=== PATIENT | female | born 1960 | race Caucasian/White ===

== ENCOUNTER → 2024-05-18 14:50 | Outpatient (REF) | payer BC, SELFPAY | LOC: HWWDC 14:50 | PROVIDERS: ATTENDING PHYSICIAN Physician Assistant | DX: Z87.891 Personal history of nicotine dependence (principal); Z12.31 Encounter for screening mammogram for malignant neoplasm of breast | CPT/HCPCS: 71250; 77063; 77067 ==

== ENCOUNTER 2024-10-20 15:08 | Inpatient (IN) | payer BC, SELFPAY ==
[2024-10-20] VITALS (12 sets, daily range): BP systolic 119–154; BP diastolic 54–113; BMI 27.1; BMI 26.1
--- NOTE | 2024-10-20 10:02 | ED.GENMED ---
History of Present Illness
General
Chief Complaint: Breathing Problem
Source: patient
Exam Limitations: none
Time Seen by Provider: 10/20/24 09:48
Nursing documentation reviewed up to this point in time: agreed with
History of Present Illness
History of Present Illness:
Patient presents to ED secondary to increased shortness of breath over the past 1 week, worse when laying down and during exertion. Denies fever or chills. Denies coughing. Denies chest pain. Denies back pain. Denies leg pain or swelling.
Denies recent change in medications or diet. Denies recent travel or surgery. Denies family history of blood clots. Of note, approximately 10 years ago, patient ports having received cardiac catheterization and she was told by her rivet tester
that she had 'silent heart attack'. Unfortunately, patient does not recall symptoms that she was experiencing at that time, which prompted the invasive procedure.
Past History
Past History
ED Past Medical History: HTN, Hypercholesterolemia, Psychiatric and Other (Colon polyps)
ED Past Surgical History: Appendectomy, Gynecological and Other (Jaw surgery)
Social History
Tobacco: Smoker
Alcohol: Occasional
Drug: None
Personal:
Living: with family
Review of Systems
Review of Systems
Allergies reviewed?: Yes
All Other Systems: ROS reviewed and negative except as documented in HPI and ROS
Constitutional: Reports no symptoms
EENT: Reports no symptoms
Respiratory: Reports trouble breathing
Cardiac: Reports no symptoms; Denies chest pain or palpitations
ABD/GI: Reports no symptoms
: Reports no symptoms
Musculoskeletal: Reports no symptoms
Skin: Reports no symptoms
Neurological: Reports no symptoms
Phy Exam
Physical Exam
Physical Exam:
Physical Exam
General: mild respiratory distress, not acutely ill. afebrile
Head: nc/at. eomi
Neck: supple. no meningeal signs.
Heart: tachycardic, no murmur. equal radial pulses.
Lungs: mild respiratory distress. diminished breath sounds bilaterally
Abdomen: normal bowel sounds. not tender.
Neuro: alert and oriented. no focal neurological deficits
Skin: no rash
Psychiatric: well kept. interactive and cooperative
Extremities: no edema. no calf tenderness.
Scores
Heart Failure Risk
Heart Failure Risk Score: Yes
History of Stroke or TIA: No
History of intubation for respiratory distress: No
Heart rate on ED arrival >/= 110: No
SaO2 <90% on arrival on room air: Yes
HR >/=110 during 3min walk test (or too ill to perform test): No
ECG has acute ischemic changes: No
Urea >/=12mmol/L (BUN 33.6mg/dL): No
Serum CO2>/=35mmol/L: No
Troponin I or T elevated to MS Level (0.4mg/dL): No
NT-proBNP >/=5,000ng/L (5,000pg/ml): No
HF Risk Score: 1
Admission Status: MEDIUM RISK 5.1% Consider observation or discharge to home with homecare & f/u visit to PCP/[facility], or SNF for treatment
Course
Orders/Labs/Results
Orders:
Orders
10/20/24 09:15
Electrocardiogram (*1) Urgent
Reason for Study: Chest Pain
EKG- Treatment ONCE
10/20/24 09:57
Basic Metabolic Panel Urgent
Complete Blood Count/With Diff Urgent
NT-proBNP Urgent
Comment: ADD
Troponin I Urgent
10/20/24 10:01
Add On- LAB Urgent
Tests Added?: ProBNP, magnesium
10/20/24 10:02
CR Chest - 2 Views Urgent
Comment:
Reason For Exam: sob
10/20/24 10:05
D-Dimer Urgent
10/20/24 10:46
Magnesium Urgent
Comment: ADDON
Potassium Urgent
10/20/24 11:06
CT Chest PE Study Urgent
Comment:
Reason For Exam: sob with elevated d-dimer
10/20/24 11:07
Electrocardiogram (*1) Urgent
Reason for Study: Shortness of Breath
EKG- Treatment ONCE
10/20/24 13:04
Furosemide [Lasix] 20 mg IV NOW STA
10/20/24 14:42
Admit/Transfer Patient As Directed
Co-Sign Provider:
Level of Care: Inpatient admission
Assign to:: Telemetry
Physician / Group: [email or web address]
Diagnosis: Dyspnea, Hypoxia , New onset acute HF tupe unknown
Reason for Telemetry: Acute Heart Failure
Date to Stop Telemetry: 10/23/24
Time to Stop Telemetry: 11:00
Reason for Hospitalization: Dyspnea, Hypoxia , New onset acute HF tupe unknown
Expected length of stay greater than two midnights?: Yes
ELOS- Estimated Length of Stay in days: 3
I certify the patient meets the requirements for IP care: Yes
10/20/24 14:45
Code Status As Directed
Resuscitation Status: Full Code
10/20/24 Dinner
Cholesterol Lowering
At Your Request: Full Participation
Fluid Restriction: 1500 mL/day (50 oz)
Cholesterol Lowering: Sodium, 2 Gram
10/20/24 15:25
Lorazepam [Ativan] 0.5 mg PO BIDPRN PRN
10/20/24 15:25
HF DIETARY CONSULT Routine
HF EDUCATOR CONSULT Routine
Comment:
Activity As Directed
Activity Level: With Assistance
Intake/ Output As Directed
Frequency: Per unit guidelines
Patient Education As Directed
Type: CHF folder
Comment: give on admission. Document in Interdisciplinary Education record
Sleep Apnea Assessment by RN As Directed
Comment:
Physician Instructions:
Vital Signs As Directed
Frequency: Other
Additional Instructions:: Q12 or per unit guidelines if more frequent.
Weight As Directed
Frequency: Daily
Type of Scale: Standing Scale
Comment: Daily morning weight. If unable to stand, use balanced bed scale.
Weight As Directed
Frequency: Once
Type of Scale: Standing Scale
Comment: Upon Admission. If unable to stand, use balanced bed scale.
Pulse Ox/cont/shift [RESP] Routine
Quantity: 1
Special Instructions: Daily pulse oximetry at rest. If greater than 92% at rest also obtain pulse oximetry
while ambulating as tolerated.
Ot Eval And Treat Routine
Pt Eval And Treat Routine
Activity Level: With Assistance
DX Deep Vein Thrombosis Video Routine
10/20/24 16:00
Furosemide [Lasix] 20 mg IV BID AT 0800,1600
10/20/24 18:00
Enoxaparin Sodium [Lovenox] 40 mg SC QPM
10/20/24 22:00
Atorvastatin [Lipitor] 20 mg PO HS
10/21/24 05:55
Basic Metabolic Panel IN AM
Cardiovascular Evaluation IN AM
Magnesium IN AM
Troponin I Q6H
Comment: at admission & every 6 hours x 2 (3 total), ECG to be done with each level
10/21/24 06:00
Echo 2D MMode Color/Doppler IN AM
Reason for Study: heart failure
10/21/24 08:00
Aspirin Low Dose EC [Aspir Low (Enteric Coated)] 81 mg PO DAILY
10/22/24 06:00
Basic Metabolic Panel IN AM
10/23/24 06:00
Basic Metabolic Panel IN AM
10/23/24 11:00
DC Protocol for Telemetry ONCE
Abnormal Lab Results
10/20/24 10/20/24
09:57 10:05
MCHC 32.4 L g/dL
(33.0-37.0)
Absolute Monos (auto) 0.8 H 10^3/uL
(0.1-0.6)
Monocytes % 9.6 H %
(1.7-9.3)
D-Dimer 1.34 H ug/mlFEU
(0.00-0.50)
Sodium 134 L mmol/L
(135-145)
Carbon Dioxide 21 L mmol/L
(22-30)
Glucose 100 H mg/dl
(70-99)
10/20/24 09:57
10/20/24 10:46
Vital Signs
Initial and Last Documented VS:
Initial Vital Signs
Temp Pulse Resp BP Pulse Ox
98.2 F 109 16 154/100 98
10/20/24 09:24 10/20/24 09:24 10/20/24 09:24 10/20/24 09:24 10/20/24 09:24
Last Documented Vital Signs
Temp Pulse Resp BP Pulse Ox
97.9 F 84 18 119/67 100
10/21/24 15:36 10/21/24 15:36 10/21/24 15:36 10/21/24 15:36 10/21/24 15:36
MDM/Problems Addressed
MDM/Problems Addressed:
CT angiogram chest ordered to evaluate for potential pulmonary embolism, secondary to patient's presenting hypoxia, tachycardia, along with elevated D-dimer.
History and exam consistent with likely new onset congestive heart failure, as noted on chest x-ray along with elevated proBNP and patient's presenting symptoms. Patient will be admitted for IV diuresis and continual administration of supplemental
oxygen.
*EKG
EKG Intrepretation Date: 10/20/24
Heart Rate: 110
Rate: tachycardiac
Rhythm: sinus
[place]: normal axis
Ischemia: T-wave inversion
*Critical Care Note
Total Time (30-74mins, 75-104mins- exclusive of procedures): Not Applicable
ED Attending Note
-
Portions of this chart may have been created with voice recognition software.� Occasional wrong word or��sound alike� substitutions may have occurred due to the inherent limitations of voice recognition software.
Discharge Plan
Departure
Patient Disposition: Admit
Date of Disposition: 10/20/24
Time of Disposition: 13:21
Admit to: Telemetry
Presentation/result/management discussed w/ accepting MD/DO: Hospitalist
Discharge Problem:
Hypoxia, Fluid overload, Exertional dyspnea
Interventions
Interventions:
*General Assessment Last Done: 10/20/24 09:42
*Neglect/Abuse Screening Last Done: 10/20/24 09:24
ED- Fall Risk Assessment Last Done: 10/20/24 09:42
*Nursing Disposition Last Done: 10/20/24 16:53
ED- Cardiac Assessment Last Done: 10/20/24 09:42
ED- Pulmonary Assessment Last Done: 10/20/24 09:42
Discharge Date and Time
Discharge Date/Time: 10/20/24 16:53
[2024-10-20 10:13] LABS: % Basophils 0.9 % (0-2); % Eosinophils 2.3 % (0-6); % Immature Granulocytes 0.3 % (0-0.5); % Lymphocytes 23.9 % (20.5-51.1); % Monocytes 9.6 % (1.7-9.3); Absolute Basophils 0.1 10^3/uL (0-0.2); Absolute Eosinophils 0.2 10^3/uL (0-0.7); Absolute Lymphocytes 1.9 10^3/uL (1.2-3.4); Absolute Monocytes 0.8 10^3/uL (0.1-0.6); Absolute Neutrophils 4.9 10^3/uL (1.4-6.5); Hematocrit 38.9 % (37.0-47.0); Hemoglobin 12.6 g/dL (12.0-16.0); Mean Corp Hgb Conc. 32.4 g/dL (33.0-37.0); Mean Corpuscular Hgb 27.9 pg (27.0-31.0); Mean Corpuscular Volume 86.3 fL (81.0-99.0); Mean Platelet Volume 9.7 fL (7.4-10.4); Nucleated Red Blood Cells % 0 %; Platelet Count 267 10^3/uL (130-400); Red Blood Cell Count 4.51 10^6/uL (4.20-5.40); Red Cell Dist. Width 13.9 % (11.5-14.5); White Blood Cell Count 7.8 10^3/uL (4.8-10.8)
[2024-10-20 10:24] LABS: D-Dimer 1.34 ug/mlFEU (0.00-0.50)
[2024-10-20 10:37] LABS: Troponin I 0.022 ng/ml
[2024-10-20 10:41] LABS: Blood Urea Nitrogen 13 mg/dl (7-17); Calcium 8.8 mg/dl (8.4-10.2); Carbon Dioxide 21 mmol/L (22-30); Chloride 106 mmol/L (98-107); Estimated Creatinine Clearance 92 ml/min; Glucose 100 mg/dl (70-99); Sodium 134 mmol/L (135-145); eGFR > 60.00
[2024-10-20 11:28] LABS: Potassium 4.6 mmol/L (3.5-5.1)
[2024-10-20 13:15] LABS: NT-proBNP 2360 pg/ml
[2024-10-20] MEDS: LASIX 20 MG IV ×2 (13:18→18:14)
--- NOTE | 2024-10-20 14:36 | HPS.HSE ---
Family Physician
-
Family Physician: Lady Hicks, PAC
Chief Complaint
-
SoB with exertion
History of Present Illness
HPI
61F HX hypertension, hypercholesterolemia, depression, colon polyps, hemorrhagic colitis seen at ER:
- FERGUSON with hypoxia (88% on RA) at ER
- increased shortness of breath over the past 1 week, worse when laying down and during exertion.
At ER :
Of note; 10 years ago, patient reports she had cardiac catheterization and she was told by her marketing graphics specialist that she had 'silent heart attack'. Unfortunately, patient does not recall symptoms that she was experiencing at that time, which prompted
the invasive procedure.
ROS
Denies fever or chills.
Denies coughing.
Denies chest pain.
Denies leg pain or swelling.
Denies recent travel or surgery.
.
Medical History
Past Medical History
Past Medical History: Reports HTN, Hypercholesterolemia, Psychiatric (depression ) and Other (colon polyps )
Past Surgical History: Reports Other
Social History
Unable to obtain full social history at this time due to: Other
Family History
Family History: Not pertinent
Allergies / Home Medications
Allergies reflects when Allergies were last updated in [facility].
Home Medications with original date entered in [facility]
Allergy/Medication List:
Allergies
Allergy/AdvReac Type Severity Reaction Status Date / Time
Penicillins Allergy Rash Verified 10/20/24 09:26
Home Medications
aspirin 81 mg tablet,delayed release 81 mg PO DAILY 10/20/24
atorvastatin 20 mg tablet (Lipitor) 20 mg PO HS 10/20/24
cholecalciferol (vitamin D3) 25 mcg (1,000 unit) tablet (Vitamin D3) 25 mcg PO DAILY 10/20/24
lorazepam 0.5 mg tablet 0.5 mg PO BIDPRN PRN anxiety 10/20/24
Review of Systems
-
Constitutional: Reports No Symptoms
EENT: Reports No Symptoms
Respiratory: Reports See HPI and Trouble Breathing
Cardiac: Reports No Symptoms
Abdomen/GI: Reports No Symptoms
: Reports No Symptoms
Musculoskeletal: Reports No Symptoms
Skin: Reports No Symptoms
Neurological: Reports No Symptoms
Endocrine: Reports No Symptoms
Hematologic/Lymphatic: Reports No Symptoms
Psych: Reports No Symptoms
Physical Exam
Vital Signs
Vital Signs
Temp Pulse Resp BP Pulse Ox
98.2 F 92 16 141/92 93
10/20/24 09:24 10/20/24 13:30 10/20/24 09:24 10/20/24 13:18 10/20/24 13:46
Physical Exam
General: Well Developed, Well Nourished and No Apparent Distress
HEENT: NormoCephalic, Moist mucous membranes and Atraumatic
Respiratory: Clear
Cardiac: S1/S2 and Regular Rhythm; No Murmur or Rub
GI: Soft, Non Tender, Non Distended and Normal Bowel Sounds; No Organomegaly
Rectal: Deferred by Provider
Musculoskeletal: No Clubbing, No Cyanosis and No Edema
Skin: No Rash
Neuro: Nonfocal/grossly intact
Laboratory Results
-
10/20/24 09:57
10/20/24 10:46
Laboratory Results
Total Bilirubin Cancelled 10/20/24 09:57
AST Cancelled 10/20/24 09:57
ALT Cancelled 10/20/24 09:57
Alkaline Phosphatase Cancelled 10/20/24 09:57
Troponin I 0.022 ng/ml 10/20/24 09:57
Data Reviewed
-
Diagnostic Radiology: Report Reviewed by me
CT Scan: Report Reviewed by me
Medical Tests (Nuc Med, Echo, EKG etc): Report Reviewed by me
Lab Data: Labs Reviewed by me
Impression/Plan
-
Reviewed VS: unremarkable
Data
nl CBC
DD 1.34 - NEG CTC for PE
Na 134
nl Cr
TPNI 0.022
pro BNP 2360
EKG
NORMAL SINUS RHYTHM
RIGHT AXIS DEVIATION
NONSPECIFIC T WAVE ABNORMALITY
ABNORMAL ECG
WHEN COMPARED WITH ECG OF 20-OCT-2024 09:20,
QRS AXIS SHIFTED RIGHT
10/20/24 CXR
Suspect mild pulmonary interstitial edema.
10/20/24 CT Chest PE Study
1. No evidence of pulmonary embolism.
2. Moderate right and small left pleural effusions.
Last hospitalist admission: DATE OF ADMISSION: 01/09/2022 - DATE OF DISCHARGE: 01/12/2022
DISCHARGE DIAGNOSIS: Hemorrhagic colitis, possibly infectious.
ASSESSMENT & PLAN
Acute Ferguson with exertional hypoxia; afebrile and nl WCC
Likely new onset acute HF ( elevated proBNP, mild pulmonary interstitial edema) s/p Lasix 20mg at ER
- IV Lasix 2mg BID
- f/u Dyspnea, POx and daily wt
- daily BMP
- ECHO
- [facility] card consult
Benign HTN; normotensive
- Previously on Coreg, no longer on current list
- Observe BP
HLD
- c/w Atorvastatin
Depression
- stable on Lexapro continued
Current smoker
- smoking cessation
HX hemorrhagic colitis
- inactive problem
DVT Px: LMWH
Full
IP TLM
[2024-10-20] MEDS: TYLENOL 650 MG PO ×2 (15:34→23:08)
[2024-10-20] MEDS: ATIVAN 0.5 MG PO (18:13)
[2024-10-20] MEDS: LOVENOX 40 MG SC (18:13)
[2024-10-20 18:15] LABS: Troponin I 0.022 ng/ml
--- NOTE | 2024-10-20 18:30 | PTCARENOTE ---
1730 Pt arrived from ER via stretcher, alert and oriented x 3. Pt on O2 2L via n/c (pulse ox 97%). Pt mention felt short of breath when moving.
Noted MD orders, place on heart monitor (normal sinus rhythm (heart rate 80's to 90's). 1800 Lasix 20 mg IV given as ordered, also pt requested if can have a med to calm or to sleep. Explain Ativan 0.5 mg po ordered and given at this time, continue
to monitor pt closely.
[2024-10-20] MEDS: LIPITOR 20 MG PO (21:17)
[2024-10-21] VITALS (10 sets, daily range): BP systolic 94–153; BP diastolic 67–91; PULSE 77; O2SAT 94–95; BMI 25.8
[2024-10-21 00:38] LABS: Troponin I 0.025 ng/ml
[2024-10-21 06:42] LABS: Blood Urea Nitrogen 17 mg/dl (7-17); Carbon Dioxide 26 mmol/L (22-30); Chloride 102 mmol/L (98-107); Estimated Creatinine Clearance 82 ml/min; Glucose 101 mg/dl (70-99); HDL Cholesterol 60 mg/dl; LDL Cholesterol, Calculated 152 mg/dl; Magnesium 2.2 mg/dl (1.6-2.3); Potassium 4.2 mmol/L (3.5-5.1); Sodium 137 mmol/L (135-145); Total Cholesterol 238 mg/dl (50-199); Triglyceride 134 mg/dl (10-149); Very Low Density Lipoprotein 26 mg/dl (0-30); eGFR > 60.00
[2024-10-21 06:50] LABS: Troponin I 0.022 ng/ml
[2024-10-21] MEDS: ASPIR LOW (ENTERIC COATED) 81 MG PO (08:15)
[2024-10-21] MEDS: LASIX 20 MG IV ×2 (09:29→16:55)
--- NOTE | 2024-10-21 10:42 | CON.CAR ---
Addendum entered and electronically signed by Sarina Aguilar PA-C 10/21/24 11:30:
Records from Dr. Lira obtained and reviewed including last office visit and EKG 08/24/24, labs 02/26/24, cardiac cath 09/28/2014. She has history of carotid disease, resolved cardiomyopathy with most recent echocardiogram 07/2022 with EF 60 to
65%, trace MR, trace TR. She had diffuse nonobstructive CAD by cath 09/2014. At office visit 08/24/2024 it was noted that it had been 2 years since her last office visit she was continuing to smoke and she had discontinued all of her medications on
her own including carvedilol, ramipril, Lipitor. Compliance will need to be encouraged
Addendum entered and electronically signed by Osito Robbins MD 10/21/24 11:06:
I saw and examined the patient.
The SOCIAL SERVICE COORDINATOR or PA's note was reviewed and I agree with the note.
Comment: General: Well developed, well nourished in NAD.
Neck: Supple, no JVD, HJR, carotids +2 B/L, no bruits bilaterally.
Heart: Non displaced PMI, RRR, no murmurs, No S3, S4, no rubs.
Lungs: Scattered rhonchi and decreased breath sounds at right base
Extremities: No clubbing, cyanosis or edema bilaterally.
Neuro: Grossly nonfocal, awake, alert and oriented x3.
Floresita has a history of cardiomyopathy with silent heart attack and hyperlipidemia followed at [facility]. She presents with short breath for the past 48 hours as well as orthopnea. Cardiology is consulted for CHF with elevated proBNP of 2360 and
moderate right pleural effusion and small left pleural effusion
Will diurese with IV Lasix. Will check echocardiogram. IR has been consulted for thoracentesis. Try to get records from [facility].
Original Note:
Consultation
Consultation Request
Date/Time Consultation Performed: 10/21/24
Requesting Provider: Dr. Lopez
Performing Provider: Sarina Aguilar PA-C for Dr. Robbins
Reason for Consultation: CHF
Medical History
-
Chief Complaint: SOB
History of Present Illness:
Patient is a 63 yo F with PMH of 'silent heart attack' as well as cardiomyopathy followed by Dr. Lira of [facility] cardiology who reports worsening SOB over the last 48 hours. She reports significant orthopnea. Denies LE edema or weight gain. Is not
chronically on diuretic as OP. ProBNP 2360. CXR with mod R pleural effusion and small L pleural effusion. Cardiology consulted for evaluation of CHF.
PMH:
Cardiomyopathy
History of 'silent' heart attack
HLD
Anxiety
History of hemorrhagic colitis
Past Medical History
Past Medical History: Other (in HPI)
Social History
Tobacco: Former Smoker
Alcohol: Occasional
Personal:
Living: With Family
Family History
Family History: CAD
Allergies / Home Medications
Allergy/AdvReac Type Severity Reaction Status Date / Time
Penicillins Allergy Rash Verified 10/20/24 09:26
�Medication �Instructions �Recorded �Confirmed �Type
aspirin 81 mg tablet,delayed 81 mg PO DAILY Blood Clot 10/20/24 10/20/24 History
release Prevention/Tx
atorvastatin 20 mg tablet (Lipitor) 20 mg PO HS High Cholesterol 10/20/24 10/20/24 History
cholecalciferol (vitamin D3) 25 25 mcg PO DAILY Supplement 10/20/24 10/20/24 History
mcg (1,000 unit) tablet (Vitamin
D3)
lorazepam 0.5 mg tablet 0.5 mg PO BIDPRN PRN anxiety 10/20/24 10/20/24 History
Review of Systems
-
History Source: Patient
All other systems: Negative unless noted
Physical Exam
Vital Signs
Temp Pulse Resp BP Pulse Ox
97.6 F 78 18 129/80 94
10/21/24 07:47 10/21/24 09:29 10/21/24 07:47 10/21/24 09:29 10/21/24 07:47
Lab Results
10/20/24 09:57
10/21/24 05:55
Troponin I 0.022 ng/ml 10/21/24 05:55
Mxh-H-Pcnlqtuxifc Pept 2360 pg/ml 10/20/24 09:57
Physical Exam
General: No Apparent Distress
HEENT: Normocephalic, Anicteric and Moist Mucous Membranes
Respiratory: Other (decreased BS RLB)
Cardiac: S1/S2 and Regular Rhythm; Negative Murmur
GI: Soft, Non Tender, Non Distended and Normal Bowel Sounds
Musculoskeletal: No Clubbing, No Cyanosis and No Edema
Skin: Warm and Dry
Neuro: AO x 3
Impression / Plan
-
Primary Instructional Coach: Dr. Lira of [facility]
Assessment:
Presentation with SOB
Mod R and small L pleural effusions
Acute CHF, suspected systolic
Cardiomyopathy
History of 'silent' heart attack by prior cardiac catheterization
HLD
Anxiety
History of hemorrhagic colitis
Former smoker
ECHO 10/21/24: pending
Plan:
-Patient presented for evaluation of shortness of breath
-Chest CT negative for PE, however with moderate right and small left pleural effusions. proBNP elevated. Cardiology consulted for evaluation of acute CHF.
-Patient reports history of cardiomyopathy as well as 'silent' heart attack. Requested records from primary operations manager/coordinator
-[facility] has been consulted to evaluate for right thoracentesis. would analyze fluid
-Continue IV Lasix 20mg BID. Cr stable
-CHF education
-Check echo
-Continue aspirin
-increase statin to 40mg QPM given suboptimal cholesterol levels and history of CAD
-review of tele SR with 1 5-beat run of NSVT overnight. K/mag stable.
-will add toprol 25mg daily
Data Reviewed
-
EKG: Tracing Personally Visualized and interpreted
CT Scan: Report Reviewed by me
Medical Tests (Nuc Med, Echo etc): Report Reviewed by me
Labs: Labs Reviewed by me
Old Records: Requested and Reviewed
[2024-10-21] MEDS: TYLENOL 650 MG PO (12:43)
--- NOTE | 2024-10-21 14:11 | W.PN.HOSP.TC ---
Today's Communication/Plan
-
Hour after thoracentesis
Continue with IV Lasix
asa/statin
Assessment / Plan
Assessment / Plan
#Shortness of breath likely multifactorial due to acute systolic and diastolic heart failure exacerbation and pleural effusion
#Acute systolic and diastolic heart failure exacerbation EF 20%
#History of cardiomyopathy
[facility] consulted for thoracentesis
CT chest noted negative for pulmonary embolism.
Start patient on goal-directed medical therapy
Echocardiogram with EF of 20 to 25%. Global hypokinesis. Stage I diastolic dysfunction. No prior echo to compare in the system.
Start patient on 20 mg of IV Lasix
Strict I's and O's
Daily weights
Continue with aspirin, and statin
Compliance with the medication needs to be strictly enforced with the patient if she desires to improve
#Hyperlipidemia
Cholesterol elevated
Increase dose of statin
#Anxiety
Continue with Ativan home dose
History of hemorrhagic cystitis
Tobacco abuse
Counseled on cessation. DuoNeb as needed.
DVT prophylaxis Lovenox
Full code
Anticipated Discharge: > 48 hours
Subjective/Interval History
-
Date of Service: October 21, 2024
states of sob with exertion
Objective Data
-
Labs:
Laboratory Results
10/21/24
05:55
Sodium 137
Potassium 4.2
Chloride 102
Carbon Dioxide 26
BUN 17
Creatinine 0.6
Glucose 101 H
Calcium 9.0
Vital Signs:
Vital Signs
Temp Pulse Resp BP Pulse Ox
97.9 F 95 16 103/75 92
10/21/24 13:01 10/21/24 13:51 10/21/24 13:51 10/21/24 13:51 10/21/24 13:01
I&O
10/20/24 10/21/24 10/22/24
06:59 06:59 06:59
Intake Total 720 / 720
Output Total 700 / 700
Balance
Physical Exam
-
General: Well Developed and No Apparent Distress
HEENT: Normocephalic, Atraumatic and Moist Mucous Membranes
Respiratory: Wheezes and Rhonchi
Cardiac: Regular Rhythm and S1/S2; Negative Murmur, Rub or Gallop
GI: Soft, Nontender, Nondistended and Normal Bowel Sounds; Negative Organomegaly
Rectal: Deferred by Provider
Musculoskeletal: No Clubbing, No Cyanosis and No Edema
Skin: Negative Rash
Neuro: Awake, Alert, Oriented, AO x 3, No Motor Deficits and Nonfocal/Grossly Intact
Psych: Calm
Data Reviewed
-
Total Time Spent with Patient (in minutes): 55
--- NOTE | 2024-10-21 14:31 | CM ---
software design manager reviewed patient's chart and met with patient and patient lives with spouse in a split level home patient is independent with adl's and ambulation, no dme, patient drives, home when stable no needs.
PCP: Lady Hicks
Pharmacy: [facility]
Plan; Home no needs when stable.
[2024-10-21 14:35] LABS: Body Fluid Mononuclear 86.4 %; Body Fluid Polymorphonuclear 13.6 %; Body Fluid WBC 843 /CUMM
[2024-10-21 14:40] LABS: Body Fluid pH 7.53
[2024-10-21 14:44] LABS: Body Fluid Second Tech EF
[2024-10-21 16:20] LABS: Body Fluid Amylase < 30 U/L; Body Fluid Glucose 105 mg/dl; Body Fluid LDH 135 U/L
[2024-10-21] MEDS: LOVENOX 40 MG SC (17:17)
[2024-10-21 18:44] LABS: LDH 278 U/L (120-246); Total Protein 6.2 g/dl (6.3-8.2)
[2024-10-21] MEDS: ATIVAN 0.5 MG PO (20:20)
[2024-10-21] MEDS: LIPITOR 40 MG PO (21:18)
[2024-10-21] MEDS: MELATONIN 5 MG PO (21:50)
[2024-10-22 03:27] VITALS: BP 114/66
[2024-10-22 05:53] VITALS: BMI 25.8
[2024-10-22 07:44] VITALS: BP 147/84
[2024-10-22] MEDS: ASPIR LOW (ENTERIC COATED) 81 MG PO (08:46)
[2024-10-22 09:01] LABS: Blood Urea Nitrogen 24 mg/dl (7-17); Calcium 9.1 mg/dl (8.4-10.2); Carbon Dioxide 29 mmol/L (22-30); Chloride 100 mmol/L (98-107); Estimated Creatinine Clearance 70 ml/min; Glucose 109 mg/dl (70-99); Potassium 4.2 mmol/L (3.5-5.1); Sodium 137 mmol/L (135-145); eGFR > 60.00
[2024-10-22] MEDS: DUONEB 3 ML INH ×3 (09:33→21:03)
[2024-10-22] MEDS: LASIX 20 MG IV ×2 (10:12→17:52)
--- NOTE | 2024-10-22 10:34 | W.PN.CARDCBS ---
Addendum entered and electronically signed by Ostio Robbins MD 10/22/24 13:07:
I saw and examined the patient.
The MASCARA MOLDER or PA's note was reviewed and I agree with the note.
Comment: General: Well developed, well nourished in NAD.
Neck: Supple, no JVD, HJR, carotids +2 B/L, no bruits bilaterally.
Heart: Non displaced PMI, RRR, no murmurs, No S3, S4, no rubs.
Lungs: Scattered rhonchi
Extremities: No clubbing, cyanosis or edema bilaterally.
Neuro: Grossly nonfocal, awake, alert and oriented x3.
Ejection fraction severely reduced. Continue Coreg. Consider Entresto if cost is reasonable. Consider Farxiga versus Jardiance. Cardiac catheterization on 10/24/2024 to exclude CAD as the cause of cardiomyopathy. Continue IV Lasix. Discussed
with patient and at bedside
Original Note:
Today's Communication / Plan
-
Continue IV Lasix
Status post right thoracentesis
GDMT of cardiomyopathy
N.p.o. for cardiac catheterization Thursday
Impression / Plan
-
Primary Director Dietetics Department: Dr. Lira of [facility]
Assessment:
Presentation with SOB
Mod R and small L pleural effusions
Acute HFrEF
Status post right thoracentesis for 650 cc 10/21/2024
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
History of 'silent' heart attack by prior cardiac catheterization 2013, diffuse nonobstructive disease
HLD
Anxiety
History of hemorrhagic colitis
Former smoker
ECHO 10/21/24: EF 20 to 25%, global hypokinesis, stage I diastolic dysfunction
Plan:
-Patient presented with shortness of breath and being treated for acute heart failure
-She has history of a recovered cardiomyopathy. As of last office visit it was noted that she had stopped all of her medications including carvedilol, ramipril, Lipitor. She states she is unsure why she did that
-Continue IV Lasix. Reports breathing improving. Creatinine stable
-Status post right thoracentesis for 650 cc 10/21/2024
-CHF education
-Echo results reviewed with patient today, as above, EF 20 to 25%.
-Will add back GDMT as able. Ordered Coreg 3.125 mg twice daily. Case management consult to assess cost of Entresto and Farxiga. She had been on Coreg and ramipril in the past. Discussed importance of compliance moving forward
-Last cath with diffuse nonobstructive disease in 2013. Would plan for cardiac catheterization on Thursday to reevaluate coronaries in setting of recurrent cardiomyopathy
-continue asa, statin
-review of tele SR with 1 4-beat run of NSVT overnight. K/mag stable.
-smoking cessation
Progress Note - Director Dietetics Department
Subjective
Date of Service: October 22, 2024
Reports breathing improved
Objective
Labs:
10/20/24 09:57
10/22/24 08:00
Labs
Hgb 12.6 g/dL (12.0-16.0) 10/20/24 09:57
Hct 38.9 % (37.0-47.0) 10/20/24 09:57
Plt Count 267 10^3/uL (130-400) 10/20/24 09:57
Sodium 137 mmol/L (135-145) 10/22/24 08:00
Potassium 4.2 mmol/L (3.5-5.1) 10/22/24 08:00
BUN 24 mg/dl (7-17) H 10/22/24 08:00
Creatinine 0.7 mg/dL (0.6-1.0) 10/22/24 08:00
Glucose 109 mg/dl (70-99) H 10/22/24 08:00
Troponins
10/20/24 10/20/24 10/20/24
09:57 15:25 17:44
Troponin I 0.022 Cancelled 0.022
10/20/24 10/21/24 10/21/24
21:25 00:09 05:55
Troponin I Cancelled 0.025 0.022
Vital Signs and I&O:
Vital Signs
Temp Pulse Resp BP Pulse Ox
98.4 F 91 16 147/84 99
10/22/24 07:44 10/22/24 09:38 10/22/24 09:38 10/22/24 07:44 10/22/24 09:38
Vital Signs
Temp Pulse Resp BP Pulse Ox
98.4 F 91 16 147/84 99
10/22/24 07:44 10/22/24 09:38 10/22/24 09:38 10/22/24 07:44 10/22/24 09:38
Intake & Output
10/20/24 10/21/24 10/22/24 10/23/24
07:59 07:59 07:59 07:59
Intake Total 720 / 720 960 / 960
Output Total 700 / 700
Balance 20 / 20 960 / 960
Physical Exam
Physical Exam
GEN: No distress, awake, alert, oriented x3
HEENT: supple, anicteric, mmm, EOMI
LUNGS: CTA bilaterally, no wheezes/rales
CV: Reg, S1/S2, no murmur
ABD: soft, BS+, NT/ND
EXT: No cyanosis, clubbing, edema
NEURO: Gross non-focal
SKIN: Warm, pink, dry. No rash
[2024-10-22 11:18] VITALS: BP 113/67
[2024-10-22] MEDS: MIRALAX PO (12:47)
--- NOTE | 2024-10-22 13:00 | W.PN.HOSP.TC ---
Today's Communication/Plan
-
GDMT
IV lasix
nicotine patch
bowel regimen
Assessment / Plan
Assessment / Plan
#Shortness of breath likely multifactorial due to acute systolic and diastolic heart failure exacerbation and pleural effusion
#Acute systolic and diastolic heart failure exacerbation EF 20%
#History of cardiomyopathy
iRad consulted for thoracentesis status post 650 cc of clear kandice pleural fluid removed.
CT chest noted negative for pulmonary embolism.
Start patient on goal-directed medical therapy
Echocardiogram with EF of 20 to 25%. Global hypokinesis. Stage I diastolic dysfunction. No prior echo to compare in the system.
Start patient on 20 mg of IV Lasix BID
Strict I's and O's
Daily weights
Continue with aspirin, and statin and Coreg
Compliance with the medication needs to be strictly enforced with the patient if she desires to improve
Plan for cardiac cath on Thursday
#Hyperlipidemia
Cholesterol elevated
Increase dose of statin
#Anxiety
Continue with Ativan home dose
Tobacco abuse
Counseled on cessation. DuoNeb as needed and standing.
nicotine patch ordered.
Constipation
started bowel regimen
History of hemorrhagic cystitis
DVT prophylaxis Lovenox
Full code
Anticipated Discharge: > 48 hours
Subjective/Interval History
-
Date of Service: October 22, 2024
states of sob with exertion
Objective Data
-
Labs:
Laboratory Results
10/22/24
08:00
Sodium 137
Potassium 4.2
Chloride 100
Carbon Dioxide 29
BUN 24 H
Creatinine 0.7
Glucose 109 H
Calcium 9.1
Vital Signs:
Vital Signs
Temp Pulse Resp BP Pulse Ox
98.0 F 96 18 113/67 97
10/22/24 11:18 10/22/24 11:18 10/22/24 11:18 10/22/24 11:18 10/22/24 11:18
I&O
10/21/24 10/22/24 10/23/24
06:59 06:59 06:59
Intake Total 720 / 720 960 / 960
Output Total 700 / 700
Balance 960 / 960
Physical Exam
-
General: Well Developed and No Apparent Distress
HEENT: Normocephalic, Atraumatic and Moist Mucous Membranes
Respiratory: Wheezes and Rhonchi
Cardiac: Regular Rhythm and S1/S2; Negative Murmur, Rub or Gallop
GI: Soft, Nontender, Nondistended and Normal Bowel Sounds; Negative Organomegaly
Rectal: Deferred by Provider
Musculoskeletal: No Clubbing, No Cyanosis and No Edema
Skin: Negative Rash
Neuro: Awake, Alert, Oriented, AO x 3, No Motor Deficits and Nonfocal/Grossly Intact
Psych: Calm
Data Reviewed
-
Total Time Spent with Patient (in minutes): 55
[2024-10-22] MEDS: COREG 3.125 MG PO ×2 (13:06→19:41)
[2024-10-22] MEDS: NICODERM TRANSDERMAL 21 MG TRANSDERM (13:07)
[2024-10-22] MEDS: TIGAN 200 MG IM (13:09)
--- NOTE | 2024-10-22 14:54 | PTCARENOTE ---
pt was observed by this nurse vomiting. pt stated that it just came on all of a sudden. pt was assisted to bed where she said continued to vomit. hospitalist was made aware and new orders received. pt also wanted a nicotine patch since she quit
'cold turkey' on october 19 2024. pt is currently in bed with her at bedside - comfortable with call vaughn within reach
[2024-10-22 15:37] VITALS: BP 99/69
--- NOTE | 2024-10-22 16:04 | CM ---
[facility] check for medications.
For Entresto 24/26 mg BID- Pt is covered w/ $20 co-pay for 30 day count.
For Farxiga 10 mg daily- Pt is also covered w/ $20 co-pay for 30 day count. For mail order, would be $40 for 90 day count
Ordering physician updated via TT
[2024-10-22] MEDS: LOVENOX 40 MG SC (17:34)
[2024-10-22] MEDS: FLUSH (NSS) 2 FLUSH IV (17:55)
[2024-10-22] MEDS: SENOKOT-S PO (19:41)
[2024-10-22] MEDS: ATIVAN 0.5 MG PO (19:49)
[2024-10-22 19:52] VITALS: BP 125/95
[2024-10-22] MEDS: LIPITOR 40 MG PO (21:21)
[2024-10-22 23:14] VITALS: BP 140/83
[2024-10-23] MEDS: TYLENOL 650 MG PO (01:43)
[2024-10-23 03:40] VITALS: BP 111/72
[2024-10-23] MEDS: ATIVAN 0.5 MG PO ×2 (03:48→21:02)
[2024-10-23 05:49] VITALS: BMI 26.0
[2024-10-23 07:39] VITALS: BP 126/80
[2024-10-23] MEDS: DUONEB INH ×2 (07:48→11:28)
[2024-10-23 08:45] LABS: Blood Urea Nitrogen 32 mg/dl (7-17); Calcium 9.1 mg/dl (8.4-10.2); Carbon Dioxide 29 mmol/L (22-30); Chloride 97 mmol/L (98-107); Estimated Creatinine Clearance 70 ml/min; Glucose 101 mg/dl (70-99); Magnesium 2.2 mg/dl (1.6-2.3); Potassium 3.9 mmol/L (3.5-5.1); Sodium 137 mmol/L (135-145); eGFR > 60.00
[2024-10-23] MEDS: MIRALAX 17 GRAMS PO (08:54)
[2024-10-23] MEDS: SENOKOT-S 1 TABLET PO (08:55)
[2024-10-23] MEDS: ASPIR LOW (ENTERIC COATED) 81 MG PO (08:55)
[2024-10-23] MEDS: NICODERM TRANSDERMAL 21 MG TRANSDERM (08:55)
[2024-10-23] MEDS: COREG 3.125 MG PO ×2 (08:55→20:55)
--- NOTE | 2024-10-23 09:43 | W.PN.CARDCBS ---
Today's Communication / Plan
-
Continue IV Lasix
Add Entresto and Farxiga
Continue Coreg
For cardiac catheterization on 10/24/2024
Impression / Plan
-
Primary Agricultural Mechanic: Dr. Lira of [facility]
Assessment:
Presentation with SOB
Mod R and small L pleural effusions
Acute HFrEF
Nonsustained V. tach
Status post right thoracentesis for 650 cc 10/21/2024
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
History of 'silent' heart attack by prior cardiac catheterization 2013, diffuse nonobstructive disease
HLD
Anxiety
History of hemorrhagic colitis
Former smoker
ECHO 10/21/24: EF 20 to 25%, global hypokinesis, stage I diastolic dysfunction
Plan:
She continues to improve
Continue Coreg
Will start Entresto and Farxiga
For cardiac catheterization on 10/24/2024
Continue to follow on telemetry for nonsustained V. tach
Needs to stop smoking
Progress Note - Agricultural Mechanic
Subjective
Date of Service: October 23, 2024
No complaints
Objective
Labs:
10/20/24 09:57
10/23/24 07:29
Labs
Hgb 12.6 g/dL (12.0-16.0) 10/20/24 09:57
Hct 38.9 % (37.0-47.0) 10/20/24 09:57
Plt Count 267 10^3/uL (130-400) 10/20/24 09:57
Sodium 137 mmol/L (135-145) 10/23/24 07:29
Potassium 3.9 mmol/L (3.5-5.1) 10/23/24 07:29
BUN 32 mg/dl (7-17) H 10/23/24 07:29
Creatinine 0.7 mg/dL (0.6-1.0) 10/23/24 07:29
Glucose 101 mg/dl (70-99) H 10/23/24 07:29
Troponins
10/20/24 10/20/24 10/20/24
09:57 15:25 17:44
Troponin I 0.022 Cancelled 0.022
10/20/24 10/21/24 10/21/24
21:25 00:09 05:55
Troponin I Cancelled 0.025 0.022
Vital Signs and I&O:
Vital Signs
Temp Pulse Resp BP Pulse Ox
98.3 F 84 18 126/80 94
10/23/24 07:39 10/23/24 08:55 10/23/24 07:39 10/23/24 08:55 10/23/24 07:39
Vital Signs
Temp Pulse Resp BP Pulse Ox
98.3 F 84 18 126/80 94
10/23/24 07:39 10/23/24 08:55 10/23/24 07:39 10/23/24 08:55 10/23/24 07:39
Intake & Output
10/21/24 10/22/24 10/23/24 10/24/24
06:59 06:59 06:59 06:59
Intake Total 720 / 720 960 / 960 1440 / 1440
Output Total 700 / 700
Balance 20 / 20 960 / 960 1440 / 1440
Physical Exam
Physical Exam
General: Well developed, well nourished in NAD.
Neck: Supple, no JVD, HJR, carotids +2 B/L, no bruits bilaterally.
Heart: Non displaced PMI, RRR, no murmurs, No S3, S4, no rubs.
Lungs: Scattered rhonchi
Extremities: No clubbing, cyanosis or edema bilaterally.
Neuro: Grossly nonfocal, awake, alert and oriented x3.
[2024-10-23] MEDS: LASIX 20 MG IV ×2 (10:00→17:51)
[2024-10-23 11:03] VITALS: BP 116/72
[2024-10-23] MEDS: ENTRESTO 24 MG/26 MG 1 TAB PO ×2 (11:34→20:55)
[2024-10-23] MEDS: FARXIGA 10 MG PO (11:35)
--- NOTE | 2024-10-23 12:32 | W.PN.HOSP.TC ---
Today's Communication/Plan
-
IV lasix
NPO PMN for cath tomm
entresto/farxiga
counseled on tobacco cessation once again
Assessment / Plan
Assessment / Plan
#Shortness of breath likely multifactorial due to acute systolic and diastolic heart failure exacerbation and pleural effusion
#Acute systolic and diastolic heart failure exacerbation EF 20%
#History of cardiomyopathy
iRad consulted for thoracentesis status post 650 cc of clear kandice pleural fluid removed.
CT chest noted negative for pulmonary embolism.
Start patient on goal-directed medical therapy Entresto, Farxiga
Echocardiogram with EF of 20 to 25%. Global hypokinesis. Stage I diastolic dysfunction. No prior echo to compare in the system.
Start patient on 20 mg of IV Lasix BID
Strict I's and O's
Daily weights
Continue with aspirin, and statin and Coreg. Started on Entresto, Farxiga
Compliance with the medication needs to be strictly enforced with the patient if she desires to improve
Plan for cardiac cath on Thursday
Trend cr closely
#Hyperlipidemia
Cholesterol elevated
Increase dose of statin
#Anxiety
Continue with Ativan home dose
Tobacco abuse
Counseled on cessation. DuoNeb as needed
nicotine patch ordered.
Constipation
started bowel regimen
History of hemorrhagic cystitis
DVT prophylaxis Lovenox
Full code
Updated spouse over the phone in detail.
Anticipated Discharge: > 48 hours
Subjective/Interval History
-
Date of Service: October 23, 2024
denies nausea
having bm
improvement in breathing
Objective Data
-
Labs:
Laboratory Results
10/23/24
07:29
Sodium 137
Potassium 3.9
Chloride 97 L
Carbon Dioxide 29
BUN 32 H
Creatinine 0.7
Glucose 101 H
Calcium 9.1
Vital Signs:
Vital Signs
Temp Pulse Resp BP Pulse Ox
98.7 F 91 18 116/72 97
10/23/24 11:03 10/23/24 11:03 10/23/24 11:03 10/23/24 11:03 10/23/24 11:03
I&O
10/22/24 10/23/24 10/24/24
06:59 06:59 06:59
Intake Total 960 / 960 1440 / 1440
Balance 960 / 960 1440 / 1440
Physical Exam
-
General: Well Developed and No Apparent Distress
HEENT: Normocephalic, Atraumatic and Moist Mucous Membranes
Respiratory: Clear to Auscultation
Cardiac: Regular Rhythm and S1/S2; Negative Murmur, Rub or Gallop
GI: Soft, Nontender, Nondistended and Normal Bowel Sounds; Negative Organomegaly
Rectal: Deferred by Provider
Musculoskeletal: No Clubbing, No Cyanosis and No Edema
Skin: Negative Rash
Neuro: Awake, Alert, Oriented, AO x 3, No Motor Deficits and Nonfocal/Grossly Intact
Psych: Calm
Data Reviewed
-
Total Time Spent with Patient (in minutes): 55
--- NOTE | 2024-10-23 14:22 | PTCARENOTE ---
pt started on entresto and farxiga today and is tolerating medications well. encouraged to drink fluids
[2024-10-23 14:39] VITALS: BP 114/62
[2024-10-23] MEDS: LOVENOX 40 MG SC (17:26)
[2024-10-23 19:55] VITALS: BP 108/71
[2024-10-23] MEDS: LIPITOR 40 MG PO (20:55)
[2024-10-23] MEDS: SENOKOT-S PO (20:55)
[2024-10-23] MEDS: MELATONIN 5 MG PO (22:46)
[2024-10-23 23:10] VITALS: BP 118/66
[2024-10-24] VITALS (13 sets, daily range): BP systolic 95–120; BP diastolic 59–76; BMI 24.6
[2024-10-24] MEDS: NICODERM TRANSDERMAL 21 MG TRANSDERM (08:48)
[2024-10-24] MEDS: LASIX 20 MG IV ×2 (08:49→15:42)
[2024-10-24] MEDS: MIRALAX PO (08:49)
[2024-10-24] MEDS: FARXIGA 10 MG PO (08:50)
[2024-10-24] MEDS: SENOKOT-S 1 TABLET PO (08:50)
[2024-10-24] MEDS: ASPIR LOW (ENTERIC COATED) 81 MG PO (08:50)
[2024-10-24] MEDS: COREG 3.125 MG PO ×2 (08:50→19:48)
[2024-10-24] MEDS: ENTRESTO 24 MG/26 MG 1 TAB PO ×2 (08:50→19:48)
[2024-10-24 09:14] LABS: Blood Urea Nitrogen 32 mg/dl (7-17); Calcium 9.1 mg/dl (8.4-10.2); Carbon Dioxide 28 mmol/L (22-30); Chloride 99 mmol/L (98-107); Estimated Creatinine Clearance 70 ml/min; Glucose 95 mg/dl (70-99); Magnesium 2.3 mg/dl (1.6-2.3); Potassium 4.1 mmol/L (3.5-5.1); Sodium 138 mmol/L (135-145); eGFR > 60.00
--- NOTE | 2024-10-24 13:47 | CM ---
Home when stable, no needs.
Plan; Home no needs, when stable.
--- NOTE | 2024-10-24 14:54 | ITS.CL.CATH ---
[facility] - Catheterization
Cardiac Catheterization
Procedure Report:
RIGHT AND LEFT HEART STUDY
Date of Procedure: October 24, 2024
Referring: Dr. Osito Robbins
PROCEDURES:
1. Right heart catheterization
2. Left heart catheterization with coronary angiography
INDICATION: Dilated cardiomyopathy
ACCESS: Right radial artery, 6 Swazi sheath in right brachial vein, 5 Swazi sheath
NOTE: Patient experienced a hypotensive/vagal episode following insertion of brachial and radial sheath with profound hypotension. She received 500 mL of saline. Hemodynamics were obtained after the 500 mL saline bolus
HEMODYNAMICS : mmHg
RA (m) : 9
RV (s/d) : 32/7, 11
PA (s/d, m) : 29/12, 20
PCWP (m) : 15
AO (s/d, m) : 119/70, 92
LV (s/d) : 118/12
LVEDP : 15
Estimated Carole Cardiac Output: 5.6 L / min and Cardiac Index: 3.3 L/ min / m-2
Systemic vascular resistance: 14.8 Wood units or 1186 [id number](-5)
Pulmonary vascular resistance: 0.9 Wood units or 71 [id number]-en(-5)
CORONARY FINDINGS :
Dominance: Right
LEFT MAIN: Short and unobstructed
LEFT ANTERIOR DESCENDING: The LAD arises normally from the left main and runs in the anterior interventricular groove is a medium caliber vessel. The LAD is calcified proximally with no focal obstructive stenosis. 2 diagonal branches arise from
the LAD and have minor irregularities. The mid LAD near the origin of the second diagonal branch has a 30% stenosis in the second diagonal branch has a 50% ostial stenosis
CIRCUMFLEX: The circumflex is a medium caliber nondominant vessel with a 40% mid stenosis. OM1 arises from the mid circumflex and is a small to medium caliber vessel that trifurcates distally. The AV continuation of the circumflex is small
RIGHT CORONARY ARTERY: The right coronary artery is a moderate caliber dominant vessel with diffuse minor luminal irregularities over its course. No focal obstructive stenosis.
VENTRICULOGRAPHY: Not done
RADIATION SUMMARY: Fluoro Time (min): 3.7, Dose (mGy): 195, DAP (Gy.cm2) : 15.4
CONCLUSIONS
1. Nonobstructive coronary disease
2. Dilated cardiomyopathy with compensated right and left ventricular filling pressure
RECOMMENDATIONS
1. Discontinue all alcohol use. Family members had expressed concern that she may be consuming more on a daily basis then she recognizes.
2. Guideline directed medical therapy for dilated cardiomyopathy
3. Smoking cessation
Copy to: Dr. Osito Robbins
[2024-10-24] MEDS: LOVENOX 40 MG SC (17:12)
--- NOTE | 2024-10-24 18:34 | W.PN.HOSP.TC ---
Today's Communication/Plan
-
await finalization of medication regiment from cardiology
Assessment / Plan
Assessment / Plan
#Shortness of breath likely multifactorial due to acute systolic and diastolic heart failure exacerbation and pleural effusion
#Acute systolic and diastolic heart failure exacerbation EF 20%
#History of cardiomyopathy
iRad consulted for thoracentesis status post 650 cc of clear kandice pleural fluid removed.
CT chest noted negative for pulmonary embolism.
Start patient on goal-directed medical therapy Entresto, Farxiga
Echocardiogram with EF of 20 to 25%. Global hypokinesis. Stage I diastolic dysfunction. No prior echo to compare in the system.
Start patient on 20 mg of IV Lasix BID
Strict I's and O's
Daily weights
Continue with aspirin, and statin and Coreg. Started on Entresto, Farxiga
Compliance with the medication needs to be strictly enforced with the patient if she desires to improve
Underwent cardiac cath 10/24: 1. Nonobstructive coronary disease
2. Dilated cardiomyopathy with compensated right and left ventricular filling pressure
RECOMMENDATIONS
1. Discontinue all alcohol use. Family members had expressed concern that she may be consuming more on a daily basis then she recognizes.
2. Guideline directed medical therapy for dilated cardiomyopathy
3. Smoking cessation
Trend cr closely
#Hyperlipidemia
Cholesterol elevated
Increase dose of statin
Alcohol use
the amount she consumes is unclear, but based on evidence of cardiomyopathy, she needs to stop
#Anxiety
Continue with Ativan home dose
Tobacco abuse
Counseled on cessation. DuoNeb as needed
nicotine patch ordered.
Constipation
started bowel regimen
History of hemorrhagic cystitis
DVT prophylaxis Lovenox
Full code
Updated spouse in room
Discussed with Dr. Robbins, await further input as to exactly medications they would like her on with dc to follow
Anticipated Discharge: 24 - 48 hours
Subjective/Interval History
-
Date of Service: October 24, 2024
Generally feels better today, asking when can go home
Objective Data
-
Labs:
Laboratory Results
10/24/24
07:08
Sodium 138
Potassium 4.1
Chloride 99
Carbon Dioxide 28
BUN 32 H
Creatinine 0.7
Glucose 95
Calcium 9.1
Vital Signs:
Vital Signs
Temp Pulse Resp BP Pulse Ox
97.5 F 89 16 104/59 96
10/24/24 11:55 10/24/24 18:27 10/24/24 18:27 10/24/24 18:27 10/24/24 18:27
I&O
10/23/24 10/24/24 10/25/24
06:59 06:59 06:59
Intake Total 1440 / 1440 1080 / 1080
Balance 1440 / 1440 1080 / 1080
Review of Systems
-
History Source: Patient, Physician (reviewed with cardio) and Coordinated Provider
Constitutional: Denies Fever
EENT: Reports No Symptoms Reported
Respiratory: Reports No Symptoms
Cardiac: Reports No Symptoms; Denies Chest Pain
Physical Exam
-
General: Well Developed, Well Nourished and No Apparent Distress
HEENT: Normocephalic, Atraumatic and Moist Mucous Membranes
Respiratory: Clear to Auscultation; Negative Wheezes, Rales or Rhonchi
Cardiac: Regular Rhythm and S1/S2
GI: Soft, Nontender and Nondistended
Musculoskeletal: No Clubbing, No Cyanosis and No Edema
Neuro: Awake, Alert and Oriented
[2024-10-24] MEDS: SENOKOT-S PO (19:44)
[2024-10-24] MEDS: LIPITOR 40 MG PO (19:49)
[2024-10-24] MEDS: ATIVAN 0.5 MG PO (19:49)
[2024-10-24] MEDS: MELATONIN 5 MG PO (21:35)
[2024-10-24] MEDS: TYLENOL 650 MG PO (21:35)
[2024-10-25 03:00] VITALS: BP 100/59
[2024-10-25 06:00] VITALS: BMI 25.0
[2024-10-25 07:25] VITALS: BP 126/75
[2024-10-25 08:11] LABS: Hematocrit 47.7 % (37.0-47.0); Hemoglobin 15.2 g/dL (12.0-16.0); Mean Corp Hgb Conc. 31.9 g/dL (33.0-37.0); Mean Corpuscular Hgb 28.1 pg (27.0-31.0); Mean Corpuscular Volume 88.2 fL (81.0-99.0); Mean Platelet Volume 10.3 fL (7.4-10.4); Platelet Count 320 10^3/uL (130-400); Red Blood Cell Count 5.41 10^6/uL (4.20-5.40); Red Cell Dist. Width 13.7 % (11.5-14.5)
[2024-10-25 08:37] LABS: Blood Urea Nitrogen 28 mg/dl (7-17); Calcium 9.1 mg/dl (8.4-10.2); Carbon Dioxide 29 mmol/L (22-30); Chloride 100 mmol/L (98-107); Estimated Creatinine Clearance 70 ml/min; Glucose 93 mg/dl (70-99); Magnesium 2.3 mg/dl (1.6-2.3); Potassium 4.7 mmol/L (3.5-5.1); Sodium 139 mmol/L (135-145); eGFR > 60.00
--- NOTE | 2024-10-25 09:55 | W.PN.CARDCBS ---
Today's Communication / Plan
-
Plan:
-Blood pressure marginal at times. Will switch carvedilol to Toprol XL 25 mg daily. Not sure she will be a good 2x med taker and given marginal BP since metoprolol is less effective as BP med
-Continue Entresto 24/26 mg
-Continue atorvastatin
-Stressed the need for
-Followup with Dr. Lira in a few weeks. She was thinking she wanted to move care to [place] and we will make arrangement for SALES ACCOUNT LEADER/PA. Initial Consult done by Dr. Robbins
-Stressed the need for alcohol and tobacco cessation
-Needs HF education
-She will need repeat echo in 90 days on medical therapy
Impression / Plan
-
Primary Software Quality Test Engineer: Dr. Lira of [facility]
Initial Consult at : Dr. Robbins
Assessment:
-Presentation with SOB
-Mod R and small L pleural effusions
-Acute HFrEF
-Nonsustained V. tach
-Status post right thoracentesis for 650 cc 10/21/2024
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
-History of 'silent' heart attack by prior cardiac catheterization 2013, diffuse nonobstructive disease by catheterization in 2013
-HLD
-Anxiety
-History of hemorrhagic colitis
-Former smoker: Quit on arrival to hospital or the day before
-ETOH: Family feels patient minimized alcohol use
ECHO 10/21/24: EF 20 to 25%, global hypokinesis, stage I diastolic dysfunction
Plan:
-Blood pressure marginal at times. Will switch carvedilol to Toprol XL 25 mg daily
-Continue Entresto 24/26 mg
-Continue atorvastatin
-Stressed the need for
-Followup with Dr. Lira in a few weeks. She was thinking she wanted to move care to [place] and we will make arrangement for SALES ACCOUNT LEADER/PA. Initial Consult done by Dr. Robbins
-Stressed the need for alcohol and tobacco cessation
-Needs HF education
-She will need repeat echo in 90 days on medical therapy
Progress Note - Software Quality Test Engineer
Subjective
Date of Service: October 25, 2024
Feeling well. Right shoulder discomfort which she thinks was how she held shoulder for catheterization procedure
Objective
Labs:
10/25/24 07:03
10/25/24 07:03
Labs
Hgb 15.2 g/dL (12.0-16.0) D 10/25/24 07:03
Hct 47.7 % (37.0-47.0) H 10/25/24 07:03
Plt Count 320 10^3/uL (130-400) 10/25/24 07:03
Sodium 139 mmol/L (135-145) 10/25/24 07:03
Potassium 4.7 mmol/L (3.5-5.1) 10/25/24 07:03
BUN 28 mg/dl (7-17) H 10/25/24 07:03
Creatinine 0.7 mg/dL (0.6-1.0) 10/25/24 07:03
Glucose 93 mg/dl (70-99) 10/25/24 07:03
Vital Signs and I&O:
Vital Signs
Temp Pulse Resp BP Pulse Ox
97.7 F 80 20 126/75 96
10/25/24 07:25 10/25/24 07:25 10/25/24 07:25 10/25/24 07:25 10/25/24 07:25
Vital Signs
Temp Pulse Resp BP Pulse Ox
97.7 F 80 20 126/75 96
10/25/24 07:25 10/25/24 07:25 10/25/24 07:25 10/25/24 07:25 10/25/24 07:25
Intake & Output
10/22/24 10/23/24 10/24/24 10/25/24
23:59 23:59 23:59 23:59
Intake Total 1440 / 1440 840 / 840 240 / 240 360 / 360
Balance 1440 / 1440 840 / 840 240 / 240 360 / 360
Physical Exam
Physical Exam
Gen: Resting but awakens and is interactive
HEENT: NC/AT, sclera anicteric
Lungs: Clear bilaterally
CV: RRR
Ext: Radial access and brachial access sites look well. No bruit. No LE edema
[2024-10-25] MEDS: NICODERM TRANSDERMAL 21 MG TRANSDERM (10:24)
[2024-10-25] MEDS: SENOKOT-S PO (10:25)
[2024-10-25] MEDS: MIRALAX PO (10:25)
[2024-10-25] MEDS: ASPIR LOW (ENTERIC COATED) 81 MG PO (10:27)
[2024-10-25] MEDS: FARXIGA 10 MG PO (10:27)
[2024-10-25] MEDS: ENTRESTO 24 MG/26 MG 1 TAB PO (10:28)
[2024-10-25] MEDS: LASIX 20 MG IV (10:29)
[2024-10-25] MEDS: COREG PO (10:31)
[2024-10-25 11:20] VITALS: BP 132/74
[2024-10-25 14:02] VITALS: PULSE 102; O2SAT 95
--- NOTE | 2024-10-25 14:43 | CM ---
Chart reviewed home when stable.
Plan; Home
[2024-10-25 15:13] VITALS: BP 115/68
--- NOTE | 2024-10-25 15:22 | W.PN.HOSP.TC ---
Today's Communication/Plan
-
dc today
Assessment / Plan
Assessment / Plan
#Shortness of breath likely multifactorial due to acute systolic and diastolic heart failure exacerbation and pleural effusion
#Acute systolic and diastolic heart failure exacerbation EF 20%
#History of cardiomyopathy
[facility] consulted for thoracentesis status post 650 cc of clear kandice pleural fluid removed.
cytology pending
CT chest noted negative for pulmonary embolism.
Start patient on goal-directed medical therapy Entresto, Farxiga
Echocardiogram with EF of 20 to 25%. Global hypokinesis. Stage I diastolic dysfunction. No prior echo to compare in the system.
Start patient on 20 mg of IV Lasix BID
Strict I's and O's
Daily weights
Continue with aspirin, and statin and Coreg. Started on Entresto, Farxiga
Compliance with the medication needs to be strictly enforced with the patient if she desires to improve
Underwent cardiac cath 10/24: 1. Nonobstructive coronary disease
2. Dilated cardiomyopathy with compensated right and left ventricular filling pressure
RECOMMENDATIONS
1. Discontinue all alcohol use. Family members had expressed concern that she may be consuming more on a daily basis then she recognizes.
2. Guideline directed medical therapy for dilated cardiomyopathy
3. Smoking cessation
Trend cr closely
#Hyperlipidemia
Cholesterol elevated
Increase dose of statin
Alcohol use
the amount she consumes is unclear, but based on evidence of cardiomyopathy, she needs to stop
#Anxiety
Continue with Ativan home dose
Tobacco abuse
Counseled on cessation. DuoNeb as needed
nicotine patch ordered.
Constipation
started bowel regimen
History of hemorrhagic cystitis
DVT prophylaxis Lovenox
Full code
Updated spouse in room
Discussed with Dr. Robbins, reviewed with pt and , will dc now
More than 30 minutes spent in discharge including
Final examination of the patient
Summarizing hospital stay
Instructions for continuing care to all relevant caregivers
Preparation of discharge records, prescriptions, and referral forms
Total time spent (in minutes): 45
Anticipated Discharge: Today
Subjective/Interval History
-
Date of Service: October 25, 2024
Feels well, no sob, no chest pain
Objective Data
-
Labs:
Laboratory Results
10/25/24
07:03
WBC 7.0
Hgb 15.2 D
Hct 47.7 H
Plt Count 320
Sodium 139
Potassium 4.7
Chloride 100
Carbon Dioxide 29
BUN 28 H
Creatinine 0.7
Glucose 93
Calcium 9.1
Vital Signs:
Vital Signs
Temp Pulse Resp BP Pulse Ox
98.1 F 88 18 115/68 96
10/25/24 15:13 10/25/24 15:13 10/25/24 15:13 10/25/24 15:13 10/25/24 15:13
I&O
10/24/24 10/25/24 10/26/24
06:59 06:59 06:59
Intake Total 1080 / 1080 360 / 360
Balance 1080 / 1080 360 / 360
Review of Systems
-
History Source: Patient, Family (), Physician (reviewed with cardio) and Coordinated Provider
Constitutional: Denies Fever
EENT: Reports No Symptoms Reported
Respiratory: Reports No Symptoms
Cardiac: Reports No Symptoms; Denies Chest Pain
Musculoskeletal: Reports No Symptoms
Physical Exam
-
General: Well Developed, Well Nourished and No Apparent Distress
HEENT: Normocephalic, Atraumatic and Moist Mucous Membranes
Respiratory: Clear to Auscultation; Negative Wheezes, Rales or Rhonchi
Cardiac: Regular Rhythm and S1/S2
GI: Soft, Nontender and Nondistended
Musculoskeletal: No Clubbing, No Cyanosis and No Edema
Neuro: Awake, Alert and Oriented
--- NOTE | 2024-10-25 18:57 | W.DS.TRANS ---
DC Summary - Inspector Dials
-
Discharge Instructions:
Sleep Apnea Risk Low
Discharge Diagnosis/Procedures Cardiac catheterization, HFrEF
Diet Low Cholesterol,2 Gram Sodium,Restrict fluids to
48 oz
Activity No strenuous activity
Driving Restrictions Not until seen by your Dr
Bathing Restrictions None
Blood Work CBC, CMP, BNP 1-2 weeks
Specialty Instructions Weigh Daily
Instructions: *PCP/Other Dinkey Brakeman Heart Failure Instructions
Stand-Alone Forms: DC Instructions- Cath/EP Lab
Changes to Home Medications: Yes
Discharge Medications:
DC Medications w/original date entered in [employer]
aspirin 81 mg tablet,delayed release 81 mg PO DAILY Blood Clot Prevention/Tx 10/20/24
cholecalciferol (vitamin D3) 25 mcg (1,000 unit) tablet (Vitamin D3) 25 mcg PO DAILY Supplement 10/20/24
lorazepam 0.5 mg tablet 0.5 mg PO BIDPRN PRN anxiety 10/20/24
atorvastatin 40 mg tablet 40 mg PO HS #30 tabs 10/25/24
dapagliflozin propanediol 10 mg tablet 10 mg PO DAILY #30 tabs 10/25/24
furosemide 20 mg tablet (Lasix) 20 mg PO BID #60 tabs 10/25/24
metoprolol succinate 25 mg tablet,extended release 24 hr 25 mg PO DAILY #30 tabs 10/25/24
sacubitril 24 mg-valsartan 26 mg tablet (Entresto) 1 tab PO BID #60 tabs 10/25/24
Home Medication Changes
Lipitor increased to 40 mg daily
Dapagliflozin started
Torpol XL started (had been on Coreg in the past, that was recently stopped)
Entresto started
Pending Results: No
== END 2024-10-25 16:30 | disposition home or self-care (01) | DRG 286 ==
LOC: 4 WEST ACU 15:08
PROVIDERS: Hospitalist; Nurse Practitioner; Radiology Vascular & Interventional Radiology; ADMITTING PHYSICIAN Internal Medicine; ATTENDING PHYSICIAN Internal Medicine; CONSULT PHYSICIAN Internal Medicine Cardiovascular Disease; EMERGENCY PHYSICIAN Emergency Medicine; FAMILY PHYSICIAN Physician Assistant
PROC: 0W993ZZ Drainage of Right Pleural Cavity, Percutaneous Approach (ICD-10-PCS; 2024-10-21)
PROC: 4A023N8 Measurement of Cardiac Sampling and Pressure, Bilateral, Percutaneous Approach (ICD-10-PCS; 2024-10-24)
PROC: B2111ZZ Fluoroscopy of Multiple Coronary Arteries using Low Osmolar Contrast (ICD-10-PCS; 2024-10-24)
DX: I11.0 Hypertensive heart disease with heart failure (principal); I50.41 Acute combined systolic (congestive) and diastolic (congestive) heart failure; I47.20 Ventricular tachycardia, unspecified; I42.0 Dilated cardiomyopathy; F17.200 Nicotine dependence, unspecified, uncomplicated; E78.00 Pure hypercholesterolemia, unspecified; F10.90 Alcohol use, unspecified, uncomplicated; F41.9 Anxiety disorder, unspecified; K59.09 Other constipation; F32.A Depression, unspecified; R09.02 Hypoxemia; Z86.0100 Personal history of colon polyps, unspecified; I25.2 Old myocardial infarction; Z88.0 Allergy status to penicillin; Z79.82 Long term (current) use of aspirin; Z79.899 Other long term (current) drug therapy; Z82.49 Family history of ischemic heart disease and other diseases of the circulatory system; I25.10 Atherosclerotic heart disease of native coronary artery without angina pectoris
CPT/HCPCS: 88305; 32555; 71045; 71046; 71275; 80048; 80061; 82150; 82945; 83615; 83735; 83880; 83986; 84132; 84155; 84157; 84484; 85025; 85027; 85379; 87015; 87070; 87205; 88112; 89051; 93005; 93306; 93460; 94640; 96374; 97162; 97166; 97530; 99285; 99406; C1894; Q9967

== ENCOUNTER → 2025-01-25 13:06 | Outpatient (REF) | payer OTHER, SELFPAY | LOC: HWRCS 13:06 | PROVIDERS: ATTENDING PHYSICIAN Nurse Practitioner; FAMILY PHYSICIAN Family Medicine; REFERRING PHYSICIAN Internal Medicine Cardiovascular Disease | DX: I42.8 Other cardiomyopathies (principal) | CPT/HCPCS: 93306 ==

== ENCOUNTER 2025-03-08 00:48 | Emergency (ER) | payer OTHER, SELFPAY ==
[2025-03-08 00:59] VITALS: BP 124/86
[2025-03-08 01:17] LABS: % Basophils 0.9 % (0-2); % Eosinophils 3.3 % (0-6); % Immature Granulocytes 0.2 % (0-0.5); % Lymphocytes 35.7 % (20.5-51.1); % Monocytes 9.7 % (1.7-9.3); % Neutrophils 50.2 % (42.2-75.2); Absolute Basophils 0.1 10^3/uL (0-0.2); Absolute Eosinophils 0.2 10^3/uL (0-0.7); Absolute Lymphocytes 2.4 10^3/uL (1.2-3.4); Absolute Monocytes 0.6 10^3/uL (0.1-0.6); Absolute Neutrophils 3.3 10^3/uL (1.4-6.5); Hematocrit 42.2 % (37.0-47.0); Hemoglobin 13.8 g/dL (12.0-16.0); Mean Corp Hgb Conc. 32.7 g/dL (33.0-37.0); Mean Corpuscular Hgb 29.2 pg (27.0-31.0); Mean Corpuscular Volume 89.4 fL (81.0-99.0); Mean Platelet Volume 9.4 fL (7.4-10.4); Nucleated Red Blood Cells % 0 %; Platelet Count 274 10^3/uL (130-400); Red Blood Cell Count 4.72 10^6/uL (4.20-5.40); Red Cell Dist. Width 13.8 % (11.5-14.5); White Blood Cell Count 6.6 10^3/uL (4.8-10.8)
[2025-03-08 01:38] LABS: ALT (SGPT) 22 U/L (0-35); AST (SGOT) 19 U/L (14-36); Albumin 4.5 g/dl (3.5-5.0); Alkaline Phosphatase 70 U/L (38-126); Blood Urea Nitrogen 24 mg/dl (7-17); Calcium 9.2 mg/dl (8.4-10.2); Carbon Dioxide 28 mmol/L (22-30); Chloride 108 mmol/L (98-107); Glucose 103 mg/dl (70-99); Lipase 99 U/L (23-300); Potassium 4.5 mmol/L (3.5-5.1); Sodium 142 mmol/L (135-145); Total Bilirubin 0.3 mg/dl (0.2-1.3); Total Protein 7.4 g/dl (6.3-8.2); eGFR > 60.00
[2025-03-08 02:01] VITALS: BP 129/94; BMI 26.7
[2025-03-08 02:04] VITALS: BP 129/94
--- NOTE | 2025-03-08 03:04 | ED.GENMED ---
History of Present Illness
General
Chief Complaint: Abdominal Pain
Source: patient
Exam Limitations: none
Time Seen by Provider: 03/08/25 03:01
Nursing documentation reviewed up to this point in time: agreed with
History of Present Illness
History of Present Illness:
This is a 64 year-old female with a past medical history of CHF, hypertension, hyperlipidemia who reports to the an emergency apartment with concerns of right sided abdominal pain. She feels it in the low abdomen and it radiates to the right low
back. Patient reports that she went to bed this past evening when she woke up with achy abdominal pain. Patient reports that at first thought it was nothing and thought it may be related to gas pains, but then the pain got worse. Of note, patient is
taking farxiga and noticed an odd smell to her urine and she is concerned she may be having a uti or kidney infections. She denies fevers or chills. Denies nausea or vomiting, chest pain, shortness of breath. She denies diarrhea constipation. She
has a past abdominal surgical hx of appendectomy and total hysterectomy. She denies rectal bleeding, bloody stools.
Past History
Past History
ED Past Medical History: HTN, Hypercholesterolemia, Psychiatric and Other (Colon polyps)
ED Past Surgical History: Appendectomy, Gynecological and Other (Jaw surgery)
Social History
Tobacco: Smoker
Alcohol: Occasional
Drug: None
Personal:
Living: with family
Review of Systems
Review of Systems
All Other Systems: ROS reviewed and negative except as documented in HPI and ROS
Phy Exam
Physical Exam
Physical Exam:
General: Patient is well appearing and in no acute distress; non-toxic
Skin: Warm and dry, no rashes or lesions
Head: Normocephalic, atraumatic
Eyes: Sclera non-icteric. EOMs intact.
Cardiac: Regular rate and rhythm, no murmurs.
Peripheral Vascular: No lower extremity swelling or edema.
Pulm: Normal respiratory effort, no wheezes, rales, or rhonchi.
Abdomen: Abdomen is soft, minimal tenderness in the right lower abdominal quadrant. No pelvic/adenexal tenderness, no CVA tenderness.
Neuro: CN II-XII intact, no focal neurologic deficits.
Psychiatric: Appropriate mood and affect.
Course
Orders/Labs/Results
Orders:
Orders
03/08/25 01:11
Complete Blood Count/With Diff Urgent
Comprehensive Metabolic Panel Urgent
Lipase Urgent
03/08/25 03:14
Add On- LAB Urgent
Tests Added?: lipase
Morphine Sulfate 4 mg IV NOW STA
03/08/25 03:15
CT Abd/pelvis W Iv Cont Urgent
Comment:
Reason For Exam: right lower quad abdominal pain
0.9% Sodium Chloride 250 ml [Nss] 250 ml IV BOLUS
03/08/25 03:26
Urinalysis Reflex To Culture Urgent
Date Specimen was Collected: 03/08/25
Time Specimen was Collected: 03:25
Urine Microscopic Reflex Cult Urgent
03/08/25 03:29
Ondansetron Injectable [Zofran] 4 mg IV NOW STA
Abnormal Lab Results
03/08/25 03/08/25
01:11 03:26
MCHC 32.7 L g/dL
(33.0-37.0)
Monocytes % 9.7 H %
(1.7-9.3)
Chloride 108 H mmol/L
(98-107)
BUN 24 H mg/dl
(7-17)
Glucose 103 H mg/dl
(70-99)
Ur Occult Blood Reflex 1+ A
(Negative)
Urine Bacteria (Reflex) Few A
(Negative)
Urine Glucose 4+ A
(Negative)
Urine Albumin (Reflex) 1+ A
(Neg - Trace)
03/08/25 01:11
03/08/25 01:11
Vital Signs
Initial and Last Documented VS:
Initial Vital Signs
Temp Pulse Resp BP Pulse Ox
98.4 F 78 18 124/86 98
03/08/25 00:59 03/08/25 00:59 03/08/25 00:59 03/08/25 00:59 03/08/25 00:59
Last Documented Vital Signs
Temp Pulse Resp BP Pulse Ox
98.2 F 77 18 144/96 99
03/08/25 04:58 03/08/25 04:58 03/08/25 04:58 03/08/25 04:58 03/08/25 04:58
MDM/Problems Addressed
Differential Diagnosis Includes:
colitis, diverticulitis, gastroenteritis, peristalsis, constipation, UTI,kidney stone, pyelo
MDM/Problems Addressed:
This is a 64 year-old female with a past medical history of CHF, hypertension, hyperlipidemia who reports to the an emergency apartment with concerns of right sided abdominal pain. History as above. On my initial evaluation, she is minimally tender
but reports that earlier her pain was more severe. Complete pain control achieved with one dose of morphine. Afebrile and no vomiting in the ER. CT scan negative for acute pathology. Normal WBC count. Urinalysis negative. Patient given IV fluids. No
clear etiology to patients episode of pain at this time however acute urgical abdomen has been ruled out. Return precautions discussed. Patient stable for discharge.
Chronic conditions affecting care:
CHF, htn, hlp
*Pulse Oximetry
Patient hypoxic: no
*Critical Care Note
Total Time (30-74mins, 75-104mins- exclusive of procedures): Not Applicable
Data Reviewed
Review of Other/Old Records Reveals: Records (reviewed discharge summary from 10/25/24)
Source: patient
Patient Management
Escalation/DeEscalation of care consider admission/obs:
admit not indicated
ED Attending Note
-
Portions of this chart may have been created with voice recognition software.� Occasional wrong word or��sound alike� substitutions may have occurred due to the inherent limitations of voice recognition software.
Discharge Plan
Departure
Patient Disposition: Home (Routine Discharge)
Patient with high blood pressure during this ER visit?: Yes
Condition: Good
Discharge Problem:
Abdominal pain
Instructions: Abdominal Pain, BLOOD PRESSURE
Prescriptions:
No Action
aspirin 81 mg Tablet,Delayed Release (Dr/Ec)
81 mg PO DAILY
lorazepam 0.5 mg Tablet
0.5 mg PO BIDPRN PRN (Reason: anxiety)
cholecalciferol (vitamin D3) [Vitamin D3] 25 mcg (1,000 unit) Tablet
25 mcg PO DAILY
sacubitril-valsartan [Entresto] 24-26 mg Tablet
1 tab PO BID Qty: 60 3RF
dapagliflozin propanediol 10 mg Tablet
10 mg PO DAILY Qty: 30 3RF
atorvastatin 40 mg Tablet
40 mg PO HS Qty: 30 3RF
metoprolol succinate 25 mg Tablet Extended Release 24 Hr
25 mg PO DAILY Qty: 30 3RF
furosemide [Lasix] 20 mg tablet
20 mg PO BID Qty: 60 0RF
Referrals:
Lady Hicks PA-C [Family Provider] -
Activity Restrictions/Additional Instructions:
Your CBC and CMP blood work is unremarkable. Your CT scan of the abdomen does not show any acute abnormalities. Your urinalysis is not concerning for infection.
Please return emergency department should you develop fevers or chills, bloody diarrhea, rectal bleeding, any acute worsening of your pain, intractable nausea or vomiting, chest pain, shortness of breath, or any other signs or symptoms worrisome to
you.
Please call your primary care provider to schedule follow-up appointment.
Interventions
Interventions:
*Risk Screen - Suicide Last Done: 03/08/25 01:03
*General Assessment Last Done: 03/08/25 01:03
*Neglect/Abuse Screening Last Done: 03/08/25 02:11
*ED- Fall Risk Assessment Last Done: 03/08/25 02:01
*ED COVID-19 Vaccine History Last Done: 03/08/25 01:03
*Nursing Disposition Last Done: 03/08/25 04:58
DQ-Jmipet-Olvxovpavt Assessment Last Done: 03/08/25 02:01
Discharge Date and Time
Discharge Date/Time: 03/08/25 05:00
Print Language: TAMAZIGHT
[2025-03-08 03:41] LABS: Urine Albumin 1+ (Neg - Trace); Urine Bilirubin Negative (Negative); Urine Character Clear (Clear); Urine Color Yellow; Urine Glucose 4+ (Negative); Urine Ketone Negative (Negative); Urine Leukocyte Negative (Negative); Urine Nitrite Negative (Negative); Urine Occult Blood 1+ (Negative); Urine Urobilinogen Negative (Neg - 1+)
[2025-03-08 03:43] VITALS: BP 164/76
[2025-03-08] MEDS: MORPHINE SULFATE 4 MG IV (03:44)
[2025-03-08] MEDS: ZOFRAN 4 MG IV (03:44)
[2025-03-08 03:50] LABS: Urine Red Blood Cell 0-2 /HPF (0-2)
[2025-03-08 03:51] LABS: Urine Bacteria Few (Negative)
[2025-03-08] MEDS: NSS 250 IV (03:51)
[2025-03-08 04:00] VITALS: BP 149/75
[2025-03-08 04:58] VITALS: BP 144/96
== END 2025-03-08 05:00 | disposition home or self-care (01) ==
LOC: EMR 00:48
PROVIDERS: Physician Assistant; EMERGENCY PHYSICIAN Student in an Organized Health Care Education/Training Program; FAMILY PHYSICIAN Physician Assistant
DX: R10.9 Unspecified abdominal pain (principal); I11.0 Hypertensive heart disease with heart failure; I50.9 Heart failure, unspecified; E78.00 Pure hypercholesterolemia, unspecified; F17.200 Nicotine dependence, unspecified, uncomplicated; Z90.49 Acquired absence of other specified parts of digestive tract; Z86.0100 Personal history of colon polyps, unspecified
CPT/HCPCS: 99284; 96374; 96375; 96361; 74177; 80053; 81003; 81015; 83690; 85025; Q9967

== ENCOUNTER → 2025-03-09 11:22 | Outpatient (REF) | payer OTHER, SELFPAY | LOC: HWRAD 11:22 | PROVIDERS: ATTENDING PHYSICIAN Physician Assistant | DX: R91.1 Solitary pulmonary nodule (principal) | CPT/HCPCS: 71250 ==

== ENCOUNTER → 2025-05-19 10:54 | Outpatient (REF) | payer OTHER, SELFPAY | LOC: HWWDC 10:54 | PROVIDERS: ATTENDING PHYSICIAN Physician Assistant | DX: M81.0 Age-related osteoporosis without current pathological fracture (principal); Z12.31 Encounter for screening mammogram for malignant neoplasm of breast | CPT/HCPCS: 77063; 77067; 77080 ==

== ENCOUNTER 2025-09-14 08:18 | Emergency (ER) | payer OTHER, SELFPAY ==
[2025-09-14 08:22] VITALS: BP 146/96
--- NOTE | 2025-09-14 08:42 | ED.GENMED ---
History of Present Illness
General
Chief Complaint: DVT/Possible Blood Clot
Source: patient
Exam Limitations: none
Time Seen by Provider: 09/14/25 08:36
History of Present Illness
History of Present Illness:
See MDM
Past History
Past History
ED Past Medical History: HTN, Hypercholesterolemia, Psychiatric and Other (Colon polyps)
ED Past Surgical History: Appendectomy, Gynecological and Other (Jaw surgery)
Social History
Tobacco: Smoker
Alcohol: Occasional
Drug: None
Personal:
Living: with family
Phy Exam
Physical Exam
Physical Exam:
See MDM
Course
Orders/Labs/Results
Orders:
Orders
09/14/25 08:42
HYDROmorphone [Dilaudid] 1 mg IV NOW STA
US Periph Venous LOWER Ext LT Urgent
Comment:
Reason For Exam: leg pain and swelling
09/14/25 09:09
Complete Blood Count/With Diff Urgent
Comprehensive Metabolic Panel Urgent
PTT Urgent
Prothrombin Time Urgent
09/14/25 10:28
HYDROmorphone [Dilaudid] 1 mg IV NOW STA
Abnormal Lab Results
09/14/25
09:09
RBC 4.02 L 10^6/uL
(4.20-5.40)
Hgb 11.4 L g/dL
(12.0-16.0)
Hct 36.0 L %
(37.0-47.0)
MCHC 31.7 L g/dL
(33.0-37.0)
RDW 14.6 H %
(11.5-14.5)
Absolute Monos (auto) 0.7 H 10^3/uL
(0.1-0.6)
Monocytes % 10.9 H %
(1.7-9.3)
BUN 18 H mg/dl
(7-17)
ALT 67 H U/L
(0-35)
09/14/25 09:09
09/14/25 09:09
Vital Signs
Initial and Last Documented VS:
Initial Vital Signs
Temp Pulse Resp BP Pulse Ox
99.5 F 108 18 146/96 100
09/14/25 08:22 09/14/25 08:22 09/14/25 08:22 09/14/25 08:22 09/14/25 08:22
Last Documented Vital Signs
Temp Pulse Resp BP Pulse Ox
99.5 F 108 18 146/96 99
09/14/25 08:22 09/14/25 08:22 09/14/25 08:22 09/14/25 08:22 09/14/25 09:20
MDM/Problems Addressed
Differential Diagnosis Includes:
Note:
CHIEF COMPLAINT(S)
Leg swelling and shortness of breath following knee replacement surgery.
HISTORY OF PRESENT ILLNESS
The patient is a 64-year-old female who presents with swelling of the leg and shortness of breath following a knee replacement surgery. She reports that the swelling began post-operatively, and although she initially showed improvement, she
experienced increased swelling of the thigh last night. The patient describes feeling short of breath upon waking up this morning. Her temperature has reached 99.5�F. She reports that pain medication taken at home, specifically oxycodone, has been
ineffective in controlling her symptoms. The patient denies any chest pain but feels a little shortness of breath. She is concerned about the possibility of a clot.
PHYSICAL EXAM
General: Alert, no acute distress.
Skin: Warm, dry.
Head: Normocephalic, atraumatic
Neck: Appears supple, trachea midline.
Eyes, Ears, Nose, Mouth, and Throat: Moist mucous membranes
Cardiovascular: No signs of cyanosis
Respiratory: Respirations are non-labored.
Abdomen: Non-distended
Musculoskeletal: Left leg edema and tenderness to calf and mid thigh. Distal pulses intact
Neurological: No focal neurological deficit observed.
Psychiatric: Cooperative, appropriate mood and affect.
PLAN
- Administer pain medication via intravenous injection.
- Perform an ultrasound of the affected leg to assess for possible clot.
- Conduct blood work for further evaluation.
- Consider CT scan of the chest if ultrasound reveals DVT
DIFFERENTIAL DIAGNOSIS
The Differential Diagnosis includes, in no particular order and is not limited to:
- Deep vein thrombosis (DVT)
- Pulmonary embolism (PE)
- Post-surgical edema
- Infection of the surgical site
- Hematoma formation
- Reaction to medication
- Fluid overload
- Thrombophlebitis
- Heart failure exacerbation
- Drug side effect
EMERGENCY TREATMENTS ADMINISTERED
Administered intravenous hydromorphone (Dilaudid) 1 mg for pain management.
INDEPENDENT REVIEW OF LABS AND INTERPRETATION OF TESTS
- Ultrasound of the leg: Planned to assess for thrombosis.
- Blood work: Ordered to assess systemic involvement and potential for clot-related complications.
MEDICATION RECONCILIATION
The patient is currently taking oxycodone for postoperative pain management. Administered 1 mg of intravenous hydromorphone for enhanced pain control.
MEDICAL DECISION MAKING
Number and Complexity of Problems Addressed: Chronic conditions affecting care include post-surgical complications following knee replacement, potential DVT, and shortness of breath.
Data:
Category 1
- Tests ordered: Blood work, ultrasound of the leg.
Category 3
- Ultrasound and possible CT scan of the chest discussed to rule out DVT and pulmonary embolism.
Risk:
- Prescription drug management with intravenous hydromorphone administered.
- Consideration of potential for serious complications (e.g., pulmonary embolism, Deep vein thrombosis).
Consideration of Admission/Observation: Escalation of care including admission/observation was considered given the complexity and risk of the patients presenting complaint, exam findings, and/or their underlying comorbidities. However, ultimately,
I feel the patient is safe for outpatient management with close follow-up. Reasoning: Work-up reassuring, does not reveal any acute life/organ-threatening processes, patients symptoms well controlled upon reevaluation, reexamination is reassuring,
vitals are stable, patient agreeable with discharge, reliable for follow-up. Would depend on the final results of the further tests conducted.
SUMMARY OF ENCOUNTER
The patient, a 64-year-old female, presented to the emergency department with leg swelling and shortness of breath following knee replacement surgery. Ultrasound of the leg was performed, and it was negative for a blood clot. With the ultrasound
showing no deep vein thrombosis (DVT), the likelihood of a pulmonary embolism is deemed low. The patient was administered intravenous pain medication which led to an improvement in symptoms, and upon reassessment, she was feeling better.
DISPOSITION
Discharge
ASSESSMENT
Post-operative leg swelling and shortness of breath, primarily suspecting post-surgical edema without evidence of DVT or pulmonary embolism.
EMERGENCY TREATMENTS ADMINISTERED
Administered intravenous hydromorphone (Dilaudid) 1 mg for pain management.
PLAN
The patient was reassured of the negative ultrasound findings and the low likelihood of a pulmonary embolism. She will continue with post-surgical wound care and will be given instructions on the precautions to take upon discharge.
PATIENT EDUCATION AND COUNSELING
The patient was educated on the importance of monitoring for any new symptoms, provided with return precautions, and instructed on continuing her post-surgical wound care at home.
FOLLOW-UP INSTRUCTIONS
The patient should follow up with her primary care provider or orthopedic surgeon to monitor recovery and address any complications that may arise from her knee replacement surgery.
MEDICATION RECONCILIATION
The patient is currently taking oxycodone for postoperative pain management. Administered 1 mg of intravenous hydromorphone during the visit.
MEDICAL DECISION MAKING
-Complexity of Data Reviewed: Chronic conditions affecting care include post-surgical complications following knee replacement. Differential diagnosis considered includes deep vein thrombosis (DVT), pulmonary embolism (PE), post-surgical edema,
infection, hematoma, medication reaction, fluid overload, thrombophlebitis, heart failure exacerbation, and drug side effects.
-Data:
Category 1
- Tests Ordered: Ultrasound of the affected leg to rule out thrombosis.
- Reviewed Lab Tests: Blood work was ordered for further evaluation.
Category 3
- Discussion of management with ultrasound findings interpreted independently, considering management to rule out DVT and PE.
-Risk:
Consideration of Admission/Observation: Escalation of care including admission/observation was considered given the complexity and risk of the patients presenting complaint and exam findings. However, ultimately, I feel the patient is safe for
outpatient management with close follow-up. Reasoning: Work-up reassuring, does not reveal any acute life/organ-threatening processes, patients symptoms well controlled upon reevaluation, reexamination is reassuring, vitals are stable, patient
agreeable with discharge, and reliable for follow-up.
DIAGNOSIS
- Post-surgical edema, acute (ICD-10-CM T84.84XA)
- Shortness of breath (ICD-10-CM R06.02)
*Pulse Oximetry
SaO2: 100
Oxygen Mode of Delivery: Room air
Patient hypoxic: no
*Critical Care Note
Total Time (30-74mins, 75-104mins- exclusive of procedures): Not Applicable
ED Attending Note
-
Portions of this chart may have been created with voice recognition software.� Occasional wrong word or��sound alike� substitutions may have occurred due to the inherent limitations of voice recognition software.
Discharge Plan
Departure
Patient Disposition: Home (Routine Discharge)
Date of Disposition: 09/14/25
Time of Disposition: 10:28
Patient with high blood pressure during this ER visit?: Yes
Discharge Problem:
Left leg pain
Instructions: BLOOD PRESSURE
Prescriptions:
No Action
aspirin 81 mg Tablet,Delayed Release (Dr/Ec)
81 mg PO DAILY
lorazepam 0.5 mg Tablet
0.5 mg PO BIDPRN PRN (Reason: anxiety)
cholecalciferol (vitamin D3) [Vitamin D3] 25 mcg (1,000 unit) Tablet
25 mcg PO DAILY
sacubitril-valsartan [Entresto] 24-26 mg Tablet
1 tab PO BID Qty: 60 3RF
dapagliflozin propanediol 10 mg Tablet
10 mg PO DAILY Qty: 30 3RF
atorvastatin 40 mg Tablet
40 mg PO HS Qty: 30 3RF
metoprolol succinate 25 mg Tablet Extended Release 24 Hr
25 mg PO DAILY Qty: 30 3RF
furosemide [Lasix] 20 mg tablet
20 mg PO BID Qty: 60 0RF
Referrals:
Lady Hicks PA-C [Family Provider]
Activity Restrictions/Additional Instructions:
Please return for any worsening symptoms.
You may return at any time if you have further concerns.
Please follow up with your doctor at the first available appointment, preferably this week.
Thank you for choosing [facility].
Interventions
Interventions:
*Risk Screen - Suicide Last Done: 09/14/25 09:20
*General Assessment Last Done: 09/14/25 09:20
*Neglect/Abuse Screening Last Done: 09/14/25 09:20
*ED- Fall Risk Assessment Last Done: 09/14/25 09:20
*ED COVID-19 Vaccine History Last Done: 09/14/25 09:20
*ED Influenza Vaccine History Last Done: 09/14/25 09:20
ED- Cardiac Assessment Last Done: 09/14/25 09:20
ED- Pulmonary Assessment Last Done: 09/14/25 09:20
ED-Peripheral Vascular Assessment Last Done: 09/14/25 09:24
ED-Skin Assessment Last Done: 09/14/25 09:20
Discharge Date and Time
Print Language: IRISH
[2025-09-14] MEDS: DILAUDID 1 MG IV ×2 (09:12→10:46)
[2025-09-14 09:17] VITALS: BMI 28.7
[2025-09-14 09:40] LABS: Hematocrit 36.0 % (37.0-47.0); Hemoglobin 11.4 g/dL (12.0-16.0); Mean Corp Hgb Conc. 31.7 g/dL (33.0-37.0); Mean Corpuscular Volume 89.6 fL (81.0-99.0); Nucleated Red Blood Cells % 0 %; Platelet Count 328 10^3/uL (130-400); Red Cell Dist. Width 14.6 % (11.5-14.5)
[2025-09-14 09:43] LABS: INR 0.84; PT 12.0 Sec (11.4-14.6)
[2025-09-14 09:44] LABS: APTT 27.1 Sec (23.4-35.0)
[2025-09-14 09:48] LABS: ALT (SGPT) 67 U/L (0-35); AST (SGOT) 28 U/L (14-36); Albumin 3.8 g/dl (3.5-5.0); Alkaline Phosphatase 74 U/L (38-126); Blood Urea Nitrogen 18 mg/dl (7-17); Calcium 8.8 mg/dl (8.4-10.2); Carbon Dioxide 29 mmol/L (22-30); Chloride 104 mmol/L (98-107); Estimated Creatinine Clearance 90 ml/min; Glucose 95 mg/dl (70-99); Potassium 4.2 mmol/L (3.5-5.1); Sodium 137 mmol/L (135-145); Total Protein 6.4 g/dl (6.3-8.2); eGFR > 60.00
[2025-09-14 10:50] VITALS: BP 144/68
== END 2025-09-14 10:50 | disposition home or self-care (01) ==
LOC: EMR 08:18
PROVIDERS: EMERGENCY PHYSICIAN Student in an Organized Health Care Education/Training Program; FAMILY PHYSICIAN Physician Assistant
DX: M79.605 Pain in left leg (principal); I10 Essential (primary) hypertension; E78.00 Pure hypercholesterolemia, unspecified; F17.200 Nicotine dependence, unspecified, uncomplicated; Z86.0100 Personal history of colon polyps, unspecified; Z90.49 Acquired absence of other specified parts of digestive tract; Z96.659 Presence of unspecified artificial knee joint
CPT/HCPCS: 99284; 96374; 96376; 80053; 85025; 85610; 85730; 93971